=== PATIENT | female | born 1990 | race Caucasian/White ===

== ENCOUNTER 2016-06-30 20:11 | Emergency (ER) | payer OTHER ==
[~2016-06-30] VITALS: Ht 154.9 cm; Wt 102.1 kg
[~2016-06-30 20:11] MED LIST: IRON65 M2 PO; PRENATAL1 TA2 PO; [UNRECOGNIZED DRUG - REMARK]
[2016-06-30 20:23] VITALS: BP 136/90
--- NOTE | 2016-06-30 21:45 | NUR ---
PT TAKEN TO BED 6
--- NOTE | 2016-06-30 22:57 | NUR ---
Dr. Rodriguez evaluating patient at bedside.
[2016-06-30 22:58] VITALS: BP 130/90
--- NOTE | 2016-06-30 22:58 | NUR ---
Patient discharged with v/s stable. Written and verbal after care instructions given and explained. Patient alert, oriented and verbalized understanding of instructions. Ambulatory with steady gait. All questions addressed prior to discharge. ID band removed. Patient advised to follow up with PMD. Rx of PENICILLIN VK 500MG PO TID AND NAPROSYN given. Patient educated on indication of medication including possible reaction and side effects. Opportunity to ask questions provided and answered.
== END 2016-06-30 22:58 | disposition home or self-care (01) ==
LOC: MED 20:11
DX: K08.89 Other specified disorders of teeth and supporting structures (principal); R03.0 Elevated blood-pressure reading, without diagnosis of hypertension

== ENCOUNTER 2016-07-13 09:13 | Emergency (ER) | payer OTHER ==
[~2016-07-13] VITALS: Ht 154.9 cm; Wt 90.7 kg
[~2016-07-13 09:13] MED LIST changes: -IRON65 M2 PO; -PRENATAL1 TA2 PO
[2016-07-13 09:19] VITALS: BP 150/93
--- NOTE | 2016-07-13 09:23 | NUR ---
Patient ambulated to bed 04.
--- NOTE | 2016-07-13 09:25 | NUR ---
PATIENT PRESENTS TO ED WITH right inguinal area numbness 3 days . PT STATES . DENIES N/V/D; SKIN IS PINK/WARM/DRY; AAOX4 WITH EVEN AND STEADY GAIT; LUNGS CLEAR BL; HR EVEN AND REGULAR; PT DENIES ANY FEVER, CP, SOB, OR COUGH AT THIS TIME; PATIENT STATES PAIN OF 0/10 AT THIS TIME; VSS; PATIENT POSITIONED FOR COMFORT; HOB ELEVATED; BEDRAILS UP X2; BED DOWN. ER MD MADE AWARE OF PT STATUS.
--- NOTE | 2016-07-13 09:35 | NUR ---
Dr. Cm evaluating patient at bedside.
--- NOTE | 2016-07-13 09:51 | NUR ---
Patient discharged with v/s stable. Written and verbal after care instructions given and explained. Patient verbalized understanding. Ambulatory with steady gait. All questions addressed prior to discharge. Advised to follow up with PMD. encouraged to stretch safely
[2016-07-13 09:53] VITALS: BP 132/83
== END 2016-07-13 09:51 | disposition home or self-care (01) ==
LOC: MED 09:13
DX: R20.2 Paresthesia of skin (principal)
CPT/HCPCS: 99283

== ENCOUNTER 2017-04-21 17:15 | Emergency (ER) | payer MEDICAID, OTHER ==
[~2017-04-21] VITALS: Ht 154.9 cm; Wt 87.1 kg
[2017-04-21 17:19] VITALS: BP 131/75
--- NOTE | 2017-04-21 19:45 | NUR ---
PATIENT LEFT WITHOUT BEING SEEN BY DR. Zimmerman. NO FURTHER CARE PROVIDED FOR PATIENT.
== END 2017-04-21 19:45 | disposition left against medical advice (07) ==
LOC: MED 17:15
DX: R11.10 Vomiting, unspecified (principal); R10.32 Left lower quadrant pain; Z53.21 Procedure and treatment not carried out due to patient leaving prior to being seen by health care provider

== ENCOUNTER 2017-09-26 20:43 | Emergency (ER) | payer OTHER ==
[~2017-09-26] VITALS: Ht 154.9 cm; Wt 93.0 kg
[2017-09-26 20:54] VITALS: BP 155/76
--- NOTE | 2017-09-26 20:57 | NUR ---
TO LOBBY A/W BED, SANCHEZ YOO, PARAMJIT NOTED
--- NOTE | 2017-09-26 22:03 | NUR ---
PT TAKEN TO BED 3
--- NOTE | 2017-09-26 22:05 | NUR ---
27/F CAME IN W C/O 01/15 LOWER ABD CRAMPING RADIATING TO RLQ X 1999 TODAY. ABD SOFT, ROUND, +TENDERNESS TO SUPRAPUBIC. REPORTS NAUSEA, DENIES V/D, FEVER/CHILLS, HEMATURIA/DYSURIA. DENIES OTHER PMH/RX/OTC
[2017-09-26] MEDS ORDERED: KETOROLAC 30 MG/ML VIAL IM ONE (22:35)
[2017-09-27 00:09] VITALS: BP 133/74
--- NOTE | 2017-09-27 00:09 | NUR ---
Patient discharged with v/s stable. Written and verbal after care instructions given and explained. Patient alert, oriented and verbalized understanding of instructions. Ambulatory with steady gait. All questions addressed prior to discharge. ID band removed. Patient advised to follow up with PMD. Rx of BENTYL given. Patient educated on indication of medication including possible reaction and side effects. Opportunity to ask questions provided and answered.
== END 2017-09-27 00:09 | disposition home or self-care (01) ==
LOC: MED 20:43
DX: R14.3 Flatulence (principal); M54.9 Dorsalgia, unspecified; R10.30 Lower abdominal pain, unspecified; Z87.442 Personal history of urinary calculi
CPT/HCPCS: 76770; 81002; 81025; 96372; 99284; J1885; Q0092

== ENCOUNTER 2018-07-27 00:18 | Emergency (ER) | payer OTHER ==
[~2018-07-27] VITALS: Ht 154.9 cm; Wt 83.9 kg
--- NOTE | 2018-07-27 00:20 | NUR ---
PT [facility], PREBOOK. TAKEN TO BED 2
[2018-07-27 00:24] VITALS: BP 115/79
--- NOTE | 2018-07-27 00:25 | NUR ---
PT BIB [facility] [employer] FOR PREBOOK. PT ADMITS TO METH USE X 12 HOURS AGO. PT STATES SHE IS APPROXIMATELY 26 WEEKS OB+ BY LMP. PT DENIES ANY MEDICAL COMPLAINTS AT THIS TIME. ASSUMED CARE OF PT AT THIS TIME. AAOX3 WITH EVEN AND STEADY GAIT; PATIENT STATES PAIN OF 0/10; VSS; PATIENT POSITIONED FOR COMFORT; HOB ELEVATED; BEDRAILS UP X2; BED DOWN. ER MD MADE AWARE OF PT STATUS. WILL CONTINUE TO MONITOR.
--- NOTE | 2018-07-27 00:32 | NUR ---
Dr. Jose evaluating patient at bedside.
[2018-07-27 01:02] VITALS: BP 115/79
--- NOTE | 2018-07-27 01:02 | NUR ---
PATIENT BIB [employer]. PATIENT EXAMINED BY DR. ALEJO. PATIENT MEDICALLY CLEARED AND RELEASED IN CUSTODY IN STABLE CONDITION. ORIGINAL PRE-BOOK FORM GIVEN [place] [employer] OFFICER Khari HENSLEY #[id number].
== END 2018-07-27 01:02 ==
LOC: MED 00:18
DX: Z02.89 Encounter for other administrative examinations (principal); F15.20 Other stimulant dependence, uncomplicated
CPT/HCPCS: 99283

== ENCOUNTER 2018-09-23 21:18 | Emergency (ER) | payer OTHER ==
[~2018-09-23] VITALS: Ht 154.9 cm; Wt 92.5 kg
[2018-09-23 21:25] VITALS: BP 145/100
--- NOTE | 2018-09-23 21:42 | NUR ---
PT AMBULATED TO BED 3
[2018-09-23 21:49] LABS: BASOPHILS % (AUTO) 0.3 % (0.0-2.0); EOSINOPHILS # (AUTO) 0.1 K/uL (0-0.4); EOSINOPHILS % (AUTO) 1.1 % (0.0-4.0); HEMATOCRIT 37.9 % (36-48); LYMPHOCYTES # (AUTO) 2.3 K/uL (2.5-16.5); LYMPHOCYTES % (AUTO) 27.2 % (20.5-51.1); MEAN CORPUSCULAR HEMOGLOBIN 31 pg (27-31); MEAN CORPUSCULAR HGB CONC 34 g/dL (33-37); MEAN CORPUSCULAR VOLUME 90.1 fL (80-94); MONOCYTES # (AUTO) 0.6 K/uL (0.8-1.0); NEUTROPHILS # (AUTO) 5.4 K/uL (1.8-7.7); NEUTROPHILS % (AUTO) 64.4 % (42.2-75.2); PLATELET COUNT (AUTO) 216 K/uL (140-450); RED BLOOD CELL COUNT(AUTO) 4.21 MIL/uL (4.20-5.40); WHITE BLOOD COUNT (AUTO) 8.3 K/uL (4.8-10.8)
--- NOTE | 2018-09-23 21:55 | NUR ---
28 Y/O F PRESENTED TO ED WITH C/O EDEMA TO BILATERAL HANDS AND FEET. EDEMA STARTED THIS MORNING. 8/10 PAIN TO HANDS, ACHING AND CONSTANT. CAP REFILL LESS THAN 3 SECONDS. SKIN PINK/DRY. +CMS. NON-PITTING EDEMA NOTED TO BILATERAL HANDS AND FEET. ERMD NOTIFIED. WILL CONTINUE TO MONITOR.
[2018-09-23 21:59] LABS: ANION GAP 11.9 (8-16); CARBON DIOXIDE 22.8 mmol/L (21-32); CREATININE 0.7 mg/dL (0.6-1.3); POTASSIUM 3.7 mmol/L (3.5-5.1)
[2018-09-23 22:03] LABS: PROTHROMBIN TIME 8.7 secs (10.8-13.4)
[2018-09-23 22:04] LABS: TOTAL BILIRUBIN 0.3 mg/dL (0.0-1.0)
[2018-09-24 00:51] VITALS: BP 139/93
== END 2018-09-24 00:51 | disposition home or self-care (01) ==
LOC: MED 21:18
DX: O12.03 Gestational edema, third trimester (principal); Z3A.32 32 weeks gestation of pregnancy
CPT/HCPCS: 36415; 80053; 83880; 85025; 85610; 85730; 99283